=== PATIENT | male | born 1960 | race Caucasian/White ===

== ENCOUNTER 2020-06-01 00:48 | Emergency (ER) | payer OTHER ==
[~2020-06-01] VITALS: Ht 182.9 cm; Wt 120.2 kg
[~2020-06-01 00:48] MED LIST: ERYT.5TO OD
[2020-06-01] MEDS ORDERED: LIDO700A20 TOP (04:56)
[2020-06-01] MEDS ORDERED: CYCL10 PO (04:56)
[2020-06-01] MEDS ORDERED: IBU600 MG PO (04:56)
== END 2020-06-01 05:01 | disposition home or self-care (01) ==
LOC: ER 00:48
DX: S16.1XXA Strain of muscle, fascia and tendon at neck level, initial encounter (principal); S00.01XA Abrasion of scalp, initial encounter; Z23 Encounter for immunization; W22.8XXA Striking against or struck by other objects, initial encounter; Y92.410 Unspecified street and highway as the place of occurrence of the external cause
CPT/HCPCS: 70450; 70486; 72125; 90471; 90714; 99283-25; A9270

== ENCOUNTER 2021-11-11 09:30 | Day surgery (SDC) | payer BC ==
[~2021-11-11] VITALS: Ht 182.9 cm; Wt 113.6 kg
[~2021-11-11 09:30] MED LIST changes: +CYCL10 PO; +IBU600 MG PO; +LIDO700A20 TOP
--- NOTE | 2021-11-11 09:53 | NUR ---
Ambulatory in Day Surgery. History, Chart, Medications and Allergies reviewed before start of procedure. Lungs clear T/O to Auscultation. Patient States Post-Procedure ride home has been arranged.
[2021-11-11] MEDS ORDERED: TAMS.4ER PO (09:56)
--- NOTE | 2021-11-11 09:57 | NUR ---
Ambulatory in Day Surgery. Patient states colon prep results clear. History, Chart, Medications and Allergies reviewed before start of procedure.Lungs clear T/O to Auscultation. Patient confirms NPO status and agrees with scheduled surgery. Pre-Op teaching done. Pt verbalizes understanding. Patient States Post-Procedure ride home has been arranged.
--- NOTE | 2021-11-11 10:05 | NUR ---
11/11/21 [facility] Hetal Rodriguez HISTORY, CHART, MEDICATIONS AND ALLERGIES REVIEWED BEFORE START OF PROCEDURE. PATIENT CONFIRMS NPO STATUS AND AGREES WITH SCHEDULED PROCEDURE. 3-LEAD EKG REVIEWED WITH PHYSICIAN PRIOR TO START OF PROCEDURE. MONITOR INTACT WITH CONTINUOUS PULSE OXIMETRY,CAPNOGRAPHY, 3-LEAD EKG, INTERMITTENT BP. SUPPLEMENTAL O2 TO BE TITRATED THROUGHOUT PROCEDURE TO MAINTAIN O2 SATURATION ABOVE 90%. PATIENT DETERMINED TO BE ASA APPROPRIATE FOR PROPOFOL SEDATION PRIOR TO START OF PROCEDURE BY DR. RAM. MALLAMPATI CLASS 2 AIRWAY: COMPLETE VISUALIZATION OF THE UVULA. STOP BANG ASSESSMENT SCORE 5.
--- NOTE | 2021-11-11 11:11 | NUR ---
Patient up to Ambulate independently. Gait steady. Discharge instructions reviewed with patient. Patient verbalizes understanding. Copy given to patient to take home, WELL . Patient States Post-Procedure ride home has been arranged. Discharged via wheelchair to private car for ride home.
== END 2021-11-11 11:11 | disposition home or self-care (01) ==
LOC: ORSCMMR 09:30 → ORD 09:30 → ORSCMMR 09:32 → ORD 09:45
PROVIDERS: Internal Medicine Gastroenterology
PROC: 0DBK8ZX Excision of Ascending Colon, Via Natural or Artificial Opening Endoscopic, Diagnostic (ICD-10-PCS; principal; 2021-11-11 09:45)
DX: Z12.11 Encounter for screening for malignant neoplasm of colon (principal); D12.2 Benign neoplasm of ascending colon; K57.30 Diverticulosis of large intestine without perforation or abscess without bleeding; Z86.010 Personal history of colon polyps; Z87.11 Personal history of peptic ulcer disease; N40.0 Benign prostatic hyperplasia without lower urinary tract symptoms; Z79.82 Long term (current) use of aspirin
CPT/HCPCS: 88305; J2405; J2704; J7120

== ENCOUNTER 2025-02-23 11:41 | Inpatient (IN) | payer OTHER ==
[~2025-02-23] VITALS: Ht 182.9 cm; Wt 121.5 kg
[2025-02-23] VITALS (7 sets, daily range): BP systolic 89–101; BP diastolic 53–62
[~2025-02-23 11:41] MED LIST changes: +TAMS.4ER PO
[2025-02-23] MEDS ORDERED: NS 1,000 ML IV SCH ×4 (11:50→22:00)
[2025-02-23] MEDS ORDERED: Ondansetron HCl 2 MG / ML 2ML Vial IV ONE (11:50)
[2025-02-23 12:39] LABS: BASOPHILS ABSOLUTE AUTO 0.05 K/mm3 (0.00-0.23); BASOPHILS PERCENT AUTO 1 % (0-2); EOSINOPHILS ABSOLUTE AUTO 0.24 K/mm3 (0.00-0.68); EOSINOPHILS PERCENT AUTO 3 % (0-6); Hematocrit 44.9 % (37.0-53.0); Hemoglobin 15.7 g/dL (13.5-17.5); IMMATURE GRAN ABSOLUTE AUTO 0.08 K/mm3 (0.00-0.10); IMMATURE GRAN PERCENT AUTO 1 % (0-1); LYMPHOCYTES ABSOLUTE AUTO 0.53 K/mm3 (0.84-5.20); LYMPHOCYTES PERCENT AUTO 6 % (21-46); MONOCYTES ABSOLUTE AUTO 0.37 K/mm3 (0.16-1.47); MONOCYTES PERCENT AUTO 4 % (4-13); Mean Corpuscular HGB Conc 35.0 g/dL (31.5-36.5); Mean Corpuscular Volume 91 fL (80-100); NEUTROPHILS ABSOLUTE AUTO 8.19 K/mm3 (1.96-9.15); NEUTROPHILS PERCENT AUTO 87 % (41-73); NRBC ABSOLUTE 0.00 K/mm3 (0.00-0.02); NRBC Auto 0.0 /100 WBC (0.0-0.2); Platelet Count 146 K/mm3 (150-400); RDW Coefficient Variation 13.5 % (11.7-14.2); RDW Standard Deviation 45.0 fL (35.1-46.3)
[2025-02-23 13:38] LABS: Alanine Aminotransfer (ALT/SGP 111.0 U/L (12-78); Albumin, Blood 2.9 g/dL (3.4-5.0); Albumin/Globulin Ratio 0.7 (0.8-1.8); Anion Gap 14.0 mmol/L (3-11); Aspartate Aminotrans (AST/SGOT 88.0 U/L (12-37); Bilirubin, Total 2.8 mg/dL (0.1-1.0); Blood Urea Nitrogen 106.0 mg/dL (8-24); CO2, Blood 21.0 mmol/L (21-32); Calcium, Blood 8.7 mg/dL (8.5-10.1); Chloride, Blood 97.0 mmol/L (98-108); Creatinine, Blood 6.23 mg/dL (0.60-1.20); Globulin, Blood 4.2 g/dL (2.2-4.0); Glucose, Blood 131.0 mg/dL (70-99); Potassium, Blood 3.2 mmol/L (3.5-5.5); Sodium, Blood 129.0 mmol/L (136-145); Total Protein, Blood 7.1 g/dL (6.4-8.2)
[2025-02-23] MEDS ORDERED: FLU VACC TS2025-26(6MOS UP)/PF 45 MCG/0.5 ML SYRINGE IM SCH (15:00)
[2025-02-23 15:33] LABS: Source, Urine Clean Catch
[2025-02-23] MEDS ORDERED: Sodium Bicarb 8.4% Inj 100 MEQ in Sodium Chloride 0.45% 1,000 ML IV SCH (16:00)
[2025-02-23] MEDS ORDERED: Darbepoetin (Pharmacy Consult) SC SCH (16:00)
[2025-02-23 16:33] LABS: Albumin, Blood 2.7 g/dL (3.4-5.0); Anion Gap 17 mmol/L (3-11); Blood Urea Nitrogen 96 mg/dL (8-24); CO2, Blood 17 mmol/L (21-32); Calcium, Blood 8.4 mg/dL (8.5-10.1); Chloride, Blood 98 mmol/L (98-108); Creatinine, Blood 6.11 mg/dL (0.60-1.20); Glucose, Blood 129 mg/dL (70-99); Phosphorus, Blood 3.2 mg/dL (2.5-4.9); Potassium, Blood 3.3 mmol/L (3.5-5.5); Sodium, Blood 129 mmol/L (136-145)
[2025-02-23 16:50] LABS: Bilirubin, Urine Neg (Neg); Color, Urine Yellow (P-Yellow); Glucose Qualitative, Urine Neg (Neg); Ketones, Urine Neg (Neg); Leukocyte Esterase, Urine 1+ (Neg); Protein, Urine 2+ (Neg); Specific Gravity, Urine 1.015 (1.003-1.022); Urobilinogen, Urine 1+ (Normal)
--- NOTE | 2025-02-23 18:12 | NUR ---
PT ARRIVED IN THE ROOM WITH 2-3 FAMILY MEMBERS AT THE BEDSIDE, PT ARRIVED VIA WHEELCHAIR ABLE TO STAND AND TRANSFER WITH NO ISSUES. VITALS HRR SR 60-70'S, SBP SOFT AT 90'S, SATS ABOVE 95% ONRA , AFEBBRILE. SODIUM BICARB RUNNING AT 150MLS/HR. PT ALERT AND ORIENTED X3-4 [place] HAS BILATERAL HEARING AIDS TO BRING FROM HOME. PT REPORTED DIARRHEA NAUSEA AND VOMITING AT HOME PRIOR TO GETTING ADMITTED. NO REPORTED BM YET SINCE ADMISSION. PT TOLERATING PO INTAKE AT THIS TIME. NO OTHER ISSUES REPORTED WILL REPORT TO ONCOMING SHIFT
[2025-02-23 18:24] LABS: Red Blood Cells, Urine 0-2 /hpf (0-2)
[2025-02-23] MEDS ORDERED: NS 500 ML IV ONE ×2 (20:15→22:05)
[2025-02-23 20:42] LABS: pH Blood Venous 7.38 (7.34-7.37)
--- NOTE | 2025-02-23 20:44 | NUR ---
PROVIDER COMMUNICATION: PROVIDER CONSULTED D/T SOFT BPS AND POTASSIUM OF 3.3. PROVIDER ORDERED 500 ML NS BOLUS X1 AND RENAL PANEL, MAG, VBG, AND CPK. LAB HAS COLLECTED BLOOD AND PT RECEIVING 500 ML NS BOLUS. PT REMAINS ASYMPTOMATIC AND SITTING UP IN BED.
[2025-02-23] MEDS ORDERED: Heparin Sodium,Porcine 5,000 UNIT/0.5 ML SDV SC SCH (21:00)
[2025-02-23 21:17] LABS: Albumin, Blood 2.1 g/dL (3.4-5.0); Anion Gap 13 mmol/L (3-11); Blood Urea Nitrogen 108 mg/dL (8-24); CO2, Blood 18 mmol/L (21-32); Calcium, Blood 8.1 mg/dL (8.5-10.1); Chloride, Blood 102 mmol/L (98-108); Creatinine, Blood 5.68 mg/dL (0.60-1.20); Glucose, Blood 124 mg/dL (70-99); Magnesium, Blood 2.9 mg/dL (1.6-2.4); Phosphorus, Blood 3.8 mg/dL (2.5-4.9); Potassium, Blood 3.4 mmol/L (3.5-5.5); Sodium, Blood 130 mmol/L (136-145)
[2025-02-24] VITALS (8 sets, daily range): BP systolic 98–127; BP diastolic 55–64
[2025-02-24 03:46] LABS: Campylobacter Sp Not Detected (NOT DETECT); E. Coli O157 Not Detected (NOT DETECT); Enteroaggregative E. coli-EAEC Not Detected (NOT DETECT); Enteropathogenic E. coli-EPEC Not Detected (NOT DETECT); Enterotoxigenic E. coli-ETEC Not Detected (NOT DETECT); Salmonella Sp Not Detected (NOT DETECT); Shiga Toxin-prod E. coli-STEC Not Detected (NOT DETECT); Shigella/Enteroin E. coli-EIEC Not Detected (NOT DETECT); Vibrio Sp Not Detected (NOT DETECT)
[2025-02-24 03:55] LABS: BASOPHILS ABSOLUTE AUTO 0.05 K/mm3 (0.00-0.23); BASOPHILS PERCENT AUTO 1 % (0-2); EOSINOPHILS ABSOLUTE AUTO 0.35 K/mm3 (0.00-0.68); EOSINOPHILS PERCENT AUTO 4 % (0-6); Hematocrit 35.1 % (37.0-53.0); Hemoglobin 12.5 g/dL (13.5-17.5); IMMATURE GRAN ABSOLUTE AUTO 0.07 K/mm3 (0.00-0.10); IMMATURE GRAN PERCENT AUTO 1 % (0-1); LYMPHOCYTES ABSOLUTE AUTO 0.54 K/mm3 (0.84-5.20); LYMPHOCYTES PERCENT AUTO 7 % (21-46); MONOCYTES ABSOLUTE AUTO 0.42 K/mm3 (0.16-1.47); MONOCYTES PERCENT AUTO 5 % (4-13); Mean Corpuscular HGB Conc 35.6 g/dL (31.5-36.5); Mean Corpuscular Volume 88 fL (80-100); NEUTROPHILS ABSOLUTE AUTO 6.70 K/mm3 (1.96-9.15); NEUTROPHILS PERCENT AUTO 82 % (41-73); NRBC ABSOLUTE 0.00 K/mm3 (0.00-0.02); NRBC Auto 0.0 /100 WBC (0.0-0.2); Platelet Count 125 K/mm3 (150-400); RDW Coefficient Variation 13.6 % (11.7-14.2); RDW Standard Deviation 44.5 fL (35.1-46.3)
[2025-02-24 04:16] LABS: Alanine Aminotransfer (ALT/SGP 76.0 U/L (12-78); Albumin, Blood 1.8 g/dL (3.4-5.0); Albumin/Globulin Ratio 0.5 (0.8-1.8); Anion Gap 12.0 mmol/L (3-11); Aspartate Aminotrans (AST/SGOT 62.0 U/L (12-37); Bilirubin, Total 1.6 mg/dL (0.1-1.0); Blood Urea Nitrogen 106.0 mg/dL (8-24); CO2, Blood 20.0 mmol/L (21-32); Calcium, Blood 7.3 mg/dL (8.5-10.1); Chloride, Blood 104.0 mmol/L (98-108); Creatinine, Blood 5.02 mg/dL (0.60-1.20); Globulin, Blood 3.4 g/dL (2.2-4.0); Glucose, Blood 130.0 mg/dL (70-99); Magnesium, Blood 2.8 mg/dL (1.6-2.4); Phosphorus, Blood 3.6 mg/dL (2.5-4.9); Potassium, Blood 3.0 mmol/L (3.5-5.5); Sodium, Blood 133.0 mmol/L (136-145); Total Protein, Blood 5.2 g/dL (6.4-8.2)
--- NOTE | 2025-02-24 06:22 | NUR ---
SHIFT SUMMARY: PT A&OX4 CALM AND COOPERATIVE. [place] SOFT BPS AT START OF SHIFT. MD AWARE AND ORDERED 500 ML NS BOLUS X2, MIDODRINE 5MG TID, AND ECHO. MEDICATED PER EMAR. SBP >100 AND MAP >70. PT MAINTAINED >92% ON RA WHILE AWAKE BUT DESAT WHILE SLEEPING. APPLIED 2L NC AND PT MAINTAINED >92%. POTASSIUM 3.0. MD ORDERED 20 MEQ BID W/ MEALS TODAY ONLY. NS @ 75 ML/HR. PT HAD SMALL, LOOSE BM. STOOL SAMPLE COLLECTED. PT TOLERATING PO INTAKE. SBA TO BATHROOM. BED IS LOW AND LOCKED. CALL LIGHT WITHIN REACH. CONTINUE WITH CURRENT PLAN OF CARE.
[2025-02-24] MEDS ORDERED: Potassium Chloride 10 Meq Tablet SA PO SCH (08:00)
[2025-02-24] MEDS ORDERED: Lactobacil 2-S.Thermo-Bifido 1 1 Cap PO SCH (09:00)
[2025-02-24] MEDS ORDERED: CefTRIAXone Sodium 1,000 MG in NS 100 ML IV SCH (09:06)
[2025-02-24] MEDS ORDERED: Ondansetron HCl 2 MG / ML 2ML Vial IV PRN (12:15)
[2025-02-24 14:22] LABS: BASOPHILS ABSOLUTE AUTO 0.08 K/mm3 (0.00-0.23); BASOPHILS PERCENT AUTO 1 % (0-2); EOSINOPHILS ABSOLUTE AUTO 0.27 K/mm3 (0.00-0.68); EOSINOPHILS PERCENT AUTO 3 % (0-6); Hematocrit 39.6 % (37.0-53.0); Hemoglobin 13.8 g/dL (13.5-17.5); IMMATURE GRAN ABSOLUTE AUTO 0.07 K/mm3 (0.00-0.10); IMMATURE GRAN PERCENT AUTO 1 % (0-1); LYMPHOCYTES ABSOLUTE AUTO 0.38 K/mm3 (0.84-5.20); LYMPHOCYTES PERCENT AUTO 4 % (21-46); MONOCYTES ABSOLUTE AUTO 0.22 K/mm3 (0.16-1.47); MONOCYTES PERCENT AUTO 2 % (4-13); Mean Corpuscular HGB Conc 34.8 g/dL (31.5-36.5); Mean Corpuscular Volume 88 fL (80-100); NEUTROPHILS ABSOLUTE AUTO 8.95 K/mm3 (1.96-9.15); NEUTROPHILS PERCENT AUTO 90 % (41-73); NRBC ABSOLUTE 0.00 K/mm3 (0.00-0.02); NRBC Auto 0.0 /100 WBC (0.0-0.2); Platelet Count 165 K/mm3 (150-400); RDW Coefficient Variation 13.7 % (11.7-14.2); RDW Standard Deviation 44.9 fL (35.1-46.3)
[2025-02-24 14:32] LABS: pH Blood Venous 7.38 (7.34-7.37)
[2025-02-24 14:44] LABS: Magnesium, Blood 2.8 mg/dL (1.6-2.4)
[2025-02-24 14:45] LABS: Alanine Aminotransfer (ALT/SGP 91.0 U/L (12-78); Albumin, Blood 2.1 g/dL (3.4-5.0); Albumin/Globulin Ratio 0.5 (0.8-1.8); Anion Gap 13.0 mmol/L (3-11); Aspartate Aminotrans (AST/SGOT 72.0 U/L (12-37); Bilirubin, Total 1.8 mg/dL (0.1-1.0); Blood Urea Nitrogen 106.0 mg/dL (8-24); CO2, Blood 19.0 mmol/L (21-32); Calcium, Blood 7.8 mg/dL (8.5-10.1); Chloride, Blood 104.0 mmol/L (98-108); Creatinine, Blood 4.45 mg/dL (0.60-1.20); Globulin, Blood 3.9 g/dL (2.2-4.0); Glucose, Blood 118.0 mg/dL (70-99); Phosphorus, Blood 3.3 mg/dL (2.5-4.9); Potassium, Blood 3.1 mmol/L (3.5-5.5); Sodium, Blood 133.0 mmol/L (136-145); Total Protein, Blood 6.0 g/dL (6.4-8.2)
--- NOTE | 2025-02-24 18:03 | NUR ---
SHIFT SUMMARY: PT HAS BEEN COOPERATIVE THE ENTIRE SHIFT. FAMILY HAS BEEN ON THE BEDSIDE MOST OF THE TIME. PT HAD AN EPISODE OF NAUSEA AFTER SMELLING THE LUNCH WHICH COMPOSED OF SOME BROCOLLI. PT STATED HE HATES BROCOLLI. HE WAS EVENTUALLY MEDICATED. BLOOD PRESSURE WENT UP TO SBP OF 120S WHEN HE WAS NAUSEATED BUT EVENTUALLY WENT BACK TO SBP 90S-100S WHEN HE CALMED DOWN. HE ALSO TRIED TO STRAIN IN THE TOILET PRIOR TO THE NAUSEA. PT ALSO HAD A FEBRILE EPISODE AND WAS GIVEN TYLENOL. WILL REPORT TO THE NEXT NURSE ON DUTY.
[2025-02-25 03:17] VITALS: BP 108/61
[2025-02-25 03:51] LABS: BASOPHILS ABSOLUTE AUTO 0.06 K/mm3 (0.00-0.23); BASOPHILS PERCENT AUTO 0 % (0-2); EOSINOPHILS ABSOLUTE AUTO 0.33 K/mm3 (0.00-0.68); EOSINOPHILS PERCENT AUTO 2 % (0-6); Hematocrit 34.4 % (37.0-53.0); Hemoglobin 12.1 g/dL (13.5-17.5); Mean Corpuscular HGB Conc 35.2 g/dL (31.5-36.5); Mean Corpuscular Volume 89 fL (80-100); NRBC ABSOLUTE 0.00 K/mm3 (0.00-0.02); NRBC Auto 0.0 /100 WBC (0.0-0.2); Platelet Count 165 K/mm3 (150-400); RDW Coefficient Variation 14.1 % (11.7-14.2); RDW Standard Deviation 45.6 fL (35.1-46.3)
[2025-02-25 03:55] LABS: IMMATURE GRAN ABSOLUTE AUTO 0.09 K/mm3 (0.00-0.10); IMMATURE GRAN PERCENT AUTO 1 % (0-1); LYMPHOCYTES ABSOLUTE AUTO 1.25 K/mm3 (0.84-5.20); LYMPHOCYTES PERCENT AUTO 9 % (21-46); MONOCYTES ABSOLUTE AUTO 0.62 K/mm3 (0.16-1.47); MONOCYTES PERCENT AUTO 5 % (4-13); NEUTROPHILS ABSOLUTE AUTO 11.24 K/mm3 (1.96-9.15); NEUTROPHILS PERCENT AUTO 83 % (41-73)
[2025-02-25 04:09] LABS: Albumin, Blood 1.8 g/dL (3.4-5.0); Anion Gap 12 mmol/L (3-11); Blood Urea Nitrogen 112 mg/dL (8-24); CO2, Blood 19 mmol/L (21-32); Calcium, Blood 7.3 mg/dL (8.5-10.1); Chloride, Blood 104 mmol/L (98-108); Creatinine, Blood 4.93 mg/dL (0.60-1.20); Glucose, Blood 115 mg/dL (70-99); Magnesium, Blood 2.7 mg/dL (1.6-2.4); Phosphorus, Blood 4.0 mg/dL (2.5-4.9); Potassium, Blood 3.4 mmol/L (3.5-5.5); Sodium, Blood 132 mmol/L (136-145)
[2025-02-25] MEDS ORDERED: Potassium Chloride 10 Meq Tablet SA PO ONE (05:00)
--- NOTE | 2025-02-25 05:38 | NUR ---
SHIFT SUMMARY PATIENT A/OX4. REPORTS FEELING SIGNIFICANTLY BETTER THAN AT ADMISSION. LOW GRADE TEMP. REPORTED "HEARING" HIS BREATHING APPROX 0300. LS AUSC AND CRACKLES HEARD IN BASES BILATERALLY. PATIENT'S LEGS AND HANDS APPEARED EDEMETOUS COMPARED TO PRIOR NOC SHIFT. ON ROOM AIR SATS 93-95%. HOSPITAL RESIDENT NOTIFIED AND TO ROOM FOR EVAL. NO NEW ORDERS RECEIVED. AM LAB RESULTS REPORTED TO DR FUNG, IVF CHANGED TO 50ML/HR, REPLACED POTASSIUM, INCREASED BICARB TO BID. PATIENT ABLE TO AMBULATE TO RR SEVERAL TIMES TO VOID/BM WITH SBA VOIDING APPROX 200-250ML EACH TIME MIRIAM COLORED URINE. BLADDER SCAN DONE, REVEALING 300-340ML URINE POST VOID @ 0315 - DISCUSSED WITH RESIDENT AT BEDSIDE AND REPORTED TO DR FUNG VIA PHONE BY BREAK NURSE. CONT BLADDER MANAGEMENT AGUILAR. PATIENT PROVIDED EDUCATED ON CURRENT ILLNESS AND TREATMENTS. QUESTIONS ANSWERED FOR PATIENT AND FAMILY. PATIENT ABLE TO MAKE NEEDS KNOWN WITH CALL LIGHT. PLAN OF CARE ONGOING.
[2025-02-25 07:38] VITALS: BP 109/52
[2025-02-25 12:10] VITALS: BP 114/65
[2025-02-25] MEDS ORDERED: Bumetanide 0.25 MG/ML 10ML Vial IV ONE (14:50)
[2025-02-25 15:11] VITALS: BP 126/64
--- NOTE | 2025-02-25 16:42 | NUR ---
SHIFT SUMMARY PATIENT IS ALERT AND ORIENTED, ABLE TO FOLLOW COMMANDS AND MAKE NEEDS KNOWN. TELE IN PLACE, HR 60'S-70'S, SOFT BP'S AT BEGINNING OF SHIFT, MAP >65, PATIENT DENIES CHEST PAIN OR PRESSURE. SPO2 >90% ON RA. PATIENT DENIES N/V/D THIS SHIFT, DENIES ABDOMINAL PAIN OR BLOATING. PATIENT HAS EDEMA IN BLE AND FINE CRACKLES IN LUNG BASES, DR. FUNG CONTACTED REGARDING FLUID ORDERS, NEW ORDERS RECEIVED. PATIENT IS A SBA TO THE BATHROOM FOR LINE MANAGEMENT. PATIENT IS UP IN BED, BED IN LOWEST POSITION CALL LIGHT WITHIN REACH.
[2025-02-25 20:22] VITALS: BP 120/70
[2025-02-26] VITALS (9 sets, daily range): BP systolic 96–127; BP diastolic 52–73
[2025-02-26 05:32] LABS: Hematocrit 38.2 % (37.0-53.0); Hemoglobin 13.2 g/dL (13.5-17.5)
[2025-02-26 06:26] LABS: Albumin, Blood 2.2 g/dL (3.4-5.0); Anion Gap 10 mmol/L (3-11); Blood Urea Nitrogen 78 mg/dL (8-24); CO2, Blood 21 mmol/L (21-32); Calcium, Blood 8.0 mg/dL (8.5-10.1); Chloride, Blood 106 mmol/L (98-108); Creatinine, Blood 2.83 mg/dL (0.60-1.20); Glucose, Blood 153 mg/dL (70-99); Magnesium, Blood 2.6 mg/dL (1.6-2.4); Phosphorus, Blood 3.6 mg/dL (2.5-4.9); Potassium, Blood 3.2 mmol/L (3.5-5.5); Sodium, Blood 134 mmol/L (136-145)
--- NOTE | 2025-02-26 06:46 | NUR ---
SHIFT SUMMARY PATIENT A/OX4. PATIENT CONTINUING TO FEEL BETTER. URINE OUTPUT >6000ML IN LAST 24 HOURS. PT SBA/IND TO RR AND BACK TO BED. 24 HR URINE IN PROGRESS. NO REPORTS OF PAIN BESIDES 2/10 HEADACHE THIS MORNING. AFEBRILE. VSS. BP WNL. MARCIAL PO INTAKE WELL. OCCASIONAL LOOSE BM, BUT HAS SLOWED SIGNIFICANTLY. AM LABS, URINE OUTPUT, AND ASSESSMENT REVIEWED WITH DR FUNG AT BEDSIDE THIS MORNING. PLAN TO GET TOTAL OF 50MEQ POTASSIUM TODAY AND START BUMEX 1MG PO DAILY. ANTICIPATE D/C TOMORROW IF PATIENT CONTINUES TO IMPROVE PER DR FUNG. PLAN OF CARE ONGOING.
[2025-02-26] MEDS ORDERED: Potassium Chloride 10 Meq Tablet SA PO SCH ×2 (08:00→09:00)
[2025-02-26 13:39] LABS: Protein, Urine Quantitative 18.4 mg/dL (0.0-11.9)
--- NOTE | 2025-02-26 16:55 | NUR ---
SHIFT SUMMARY PATIENT IS ALERT AND ORIENTED, ABLE TO FOLLOW COMMANDS AND MAKE NEEDS KNOWN, ANSWERS ALL QUESTIONS APPROPRIATELY. VSS, TELE IN PLACE, SINUS RHYTHM 60'S-70'S, SPO2 >90% ON RA, PATIENT DENIES CHEST PAIN, PRESSURE, OR SHORTNESS OF BREATH. BPs STABLE THIS SHIFT. PATIENT DENIES N/V/D, BOWEL MOVEMENT THIS SHIFT THAT WAS NOT SEEN BY STAFF, PATIENT REPORTS LIGHT BROWN AND FORMED STOOL. PATIENT HAS HAD SIGNIFICANT URINE OUTPUT THIS SHIFT. PATIENT IS UP IN BED, BED IN LOWEST POSITION, CALLS APPROPRIATELY, CALL LIGHT WITHIN REACH.
[2025-02-27 04:57] VITALS: BP 1114/65
[2025-02-27 05:06] LABS: Hematocrit 37.7 % (37.0-53.0); Hemoglobin 13.0 g/dL (13.5-17.5)
[2025-02-27 05:34] LABS: Magnesium, Blood 1.9 mg/dL (1.6-2.4)
[2025-02-27 05:35] LABS: Albumin, Blood 2.3 g/dL (3.4-5.0); Anion Gap 10 mmol/L (3-11); Blood Urea Nitrogen 53 mg/dL (8-24); CO2, Blood 23 mmol/L (21-32); Calcium, Blood 8.0 mg/dL (8.5-10.1); Chloride, Blood 108 mmol/L (98-108); Creatinine, Blood 1.92 mg/dL (0.60-1.20); Glucose, Blood 115 mg/dL (70-99); Phosphorus, Blood 2.7 mg/dL (2.5-4.9); Potassium, Blood 3.6 mmol/L (3.5-5.5); Sodium, Blood 137 mmol/L (136-145)
--- NOTE | 2025-02-27 06:22 | NUR ---
SHIFT SUMMARY NO ACUTE EVENTS THIS SHIFT. PT AOX4. AM LAB RESULTS CALLED TO MD FUNG. SPO2 >92% ON RA. SR ON CONTINUOUS CARDIAC MONITORING. VSS, NO MIDODRINE NEEDED FOR SOFT BPS THIS SHIFT. PT PLEASANT AND COOPERATIVE WITH CARES. SBA TO RESTROOM. CALL LIGHT WITHIN REACH AND PT CALLS APPROPRIATELY FOR ASSISTANCE WHEN NEEDED. NO C/O CHEST PAIN OR PRESSURE. NO C/O SOB. BED IN LOWEST AND LOCKED POSITION.
[2025-02-27 09:03] VITALS: BP 110/67
[2025-02-27 11:31] VITALS: BP 106/67
[2025-02-27] MEDS ORDERED: MIDO5 PO (14:25)
[2025-02-27] MEDS ORDERED: BUME1 PO (14:25)
[2025-02-27] MEDS ORDERED: SODBIC650 PO (14:26)
[2025-02-27] MEDS ORDERED: KLOR-CON 1010 ME9 PO (14:26)
[2025-02-27] MEDS ORDERED: TAMS.4ER PO (14:27)
[2025-02-27 15:06] VITALS: BP 109/73
--- NOTE | 2025-02-27 18:20 | NUR ---
SHIFT SUMMARY/DISCHARGE NOTE. PATIENT AOX4 T/O SHIFT. SBP WAS 106-110 , MAP >65. HR SR 80-100'S. 02 SATS >95% ON ROOM AIR. R AC AND LFA PIV PATENT. PATIENT IS SBA TO BATHROOM WITH GOOD OUTPUT. DIURETICS ON BOARD. DENIES SOB/CHEST PAIN/PRESSURE. FLUID RESTRICTION 1500ML. PATIENT EDUCATED ON FLUID RESTRICTION AND ROSIE. PATIENT DISCHARGED WITH PLANNING AND EDUCATION PROVIDED TO FAMILY AND PATIENT ON MANAGEMENT OF KIDNEY INJURY. PATIENT LEFT BY WHEELCHAIR PUSHED BY AIDE. DEMONSTRATED KNOWLEDGE OF CONDITIN AND TREATMENT PLAN WITH FAMILY. NO FURTHER QUESTIONS CONCERNS FROM PATIENT OR FAMILY.
[2025-02-28 10:00] LABS: GBM, IGG MULTIPLEX BEAD ASSAY 0 AU/mL (0-19); MYELOPEROXIDASE (MPO) AB,IGG 0 AU/mL (0-19); SERINE PROTEINASE 3 PR3 AB,IGG 0 AU/mL (0-19)
[2025-03-02 16:20] LABS: ANTINUCLEAR AB (ANA),HEP-2,IGG <1:80 (<1:80)
[2025-03-03 14:40] LABS: ALBUMIN %,URINE 100.0 %; ALPHA-1 %,URINE 0.0 %; ALPHA-2 %,URINE 0.0 %; BETA GLOBULIN %,URINE 0.0 %; GAMMA GLOBULIN %,URINE 0.0 %; HOURS COLLECTED Not Provided hr; PARAPROTEIN %,URINE 0.0 %
== END 2025-02-27 15:32 | disposition home or self-care (01) | DRG 683 ==
LOC: ER 11:41 → PCU 14:57
PROVIDERS: Emergency Medicine; Internal Medicine Nephrology; ADMIT Family Medicine
DX: N17.0 Acute kidney failure with tubular necrosis (principal); E87.1 Hypo-osmolality and hyponatremia; E87.20 Acidosis, unspecified; A08.4 Viral intestinal infection, unspecified; E87.6 Hypokalemia; R74.01 Elevation of levels of liver transaminase levels; I87.2 Venous insufficiency (chronic) (peripheral); I87.8 Other specified disorders of veins; N40.0 Benign prostatic hyperplasia without lower urinary tract symptoms; N20.0 Calculus of kidney; I95.9 Hypotension, unspecified; D69.6 Thrombocytopenia, unspecified; N18.9 Chronic kidney disease, unspecified; K57.30 Diverticulosis of large intestine without perforation or abscess without bleeding; E86.1 Hypovolemia; E88.09 Other disorders of plasma-protein metabolism, not elsewhere classified; E87.70 Fluid overload, unspecified; R60.0 Localized edema; Z85.828 Personal history of other malignant neoplasm of skin; E86.0 Dehydration
CPT/HCPCS: 36415; 74177; 80053; 80069; 81001; 82550; 82570; 82803; 83516; 83605; 83690; 83735; 83930; 83935; 84100; 84156; 84166; 84300; 85014; 85018; 85025; 86039; 86334; 86335; 87040; 87077; 87086; 87186; 87507; 93005; 93010; 93306; 96374-59; 99285-25; A9270; J0696; J1644; J2405; J7030; J7040; Q9967

== ENCOUNTER → 2025-03-16 | Outpatient (CLI) | payer OTHER ==
[~2025-03-16] MED LIST changes: +BUME1 PO; +KLOR-CON 1010 ME9 PO; +MIDO5 PO; +SODBIC650 PO
[2025-03-16 17:48] LABS: Microalbumin, Urine Quant. 8.02 mg/L (0.000-20.000); Protein, Urine Quantitative 7.2 mg/dL (0.0-11.9)
== END ==
LOC: LAB SHORT 12:34 → LAB 12:34 → LAB FUT 03-13 09:45
PROVIDERS: Internal Medicine Nephrology
DX: N18.30 Chronic kidney disease, stage 3 unspecified (principal); D63.1 Anemia in chronic kidney disease; N25.81 Secondary hyperparathyroidism of renal origin; E55.9 Vitamin D deficiency, unspecified; E78.00 Pure hypercholesterolemia, unspecified; N40.1 Benign prostatic hyperplasia with lower urinary tract symptoms; R76.9 Abnormal immunological finding in serum, unspecified; R94.5 Abnormal results of liver function studies; R94.6 Abnormal results of thyroid function studies; D51.8 Other vitamin B12 deficiency anemias; D52.8 Other folate deficiency anemias; D50.9 Iron deficiency anemia, unspecified
CPT/HCPCS: 81050; 82043; 82570; 84156